=== PATIENT | female | born 1945 | race Caucasian/White ===

== ENCOUNTER 2018-02-27 12:01 | Inpatient (IN) ==
[2018-02-27] MEDS ORDERED: Morphine Inj 4 MG/ML Vial IV.PUSH ONE (12:29)
--- NOTE | 2018-02-27 12:33 | ED ---
HPI General Chief Complaint: Fall Stated Complaint: fall/ right elbow injury Time Seen by Provider: 02/27/18 12:16 Source: patient Mode of arrival: EMS Limitations: physical limitation History of Present Illness HPI Narrative: Patient is a 72-year-old female who presents to the emergency room with complaints of right-sided elbow pain. Patient reports that she was walking on the streets and was not paying attention, reports that she lost her balance and fell directly onto her right elbow. Patient denies any trauma to the head or neck, denies any loss of consciousness. Reports that she currently is not taking any anticoagulants. Patient is right hand dominant, her only complaint is her right elbow pain. Denies headache/dizzyness .Denies chest pain/ sob. Denies abdominal pain. NO other complaints. Related Data Home Medications Medication Instructions Recorded Confirmed amlodipine 5 mg PO DAILY 02/27/18 02/27/18 lovastatin 10 mg PO DAILY 02/27/18 02/27/18 sertraline 150 mg PO DAILY 02/27/18 02/27/18 Previous Rx's Medication Instructions Recorded tramadol 1 - 2 tab PO Q6H #28 tab 03/01/18 Allergies Allergy/AdvReac Type Severity Reaction Status Date / Time No Known Allergies Allergy Verified 02/28/18 06:57 Review of Systems ROS: all other systems reviewed are negative [facility] Medical History Medical History Anxiety (Acute) High cholesterol (Acute) Hypertension (Acute) Social History Social History Substance History: No History of Abuse Second Hand Smoke Exposure: No Smoking Status: Never smoker How Often Do You Have a Drink Containing Alcohol: Never Recent Travel in [facility] within the Last 8 Weeks: No Recent Out of Country Travel within the Last 8 Weeks: No Immunization History Tetanus Immunization: <5 Years Exam Narrative Exam Narrative: GENERAL: Well-nourished, well-developed patient. SKIN: Focused skin assessment warm/dry. HEAD: Normocephalic. EYES: No scleral icterus. No injection or drainage. NECK: Supple, trachea midline. No JVD or lymphadenopathy. CARDIOVASCULAR: Regular rate and rhythm without murmurs, gallops, or rubs. RESPIRATORY: Breath sounds equal bilaterally. No accessory muscle use. GASTROINTESTINAL: Abdomen soft, non-tender, nondistended. MUSCULOSKELETAL: No cyanosis, or edema. Patient with normal pulses to RUE - normal rom to all digits of fingers, normal rom to wrist- patient unable to ROM her right elbow due to pain - no open fx's - no skin tenting LUE: normal exam BACK: Nontender without obvious deformity. No CVA tenderness. Procedures Orthopedic Joint Reduction Joint #1: Time Out Performed: Yes Side: right Joint Reduction Location: elbow Analgesia: procedural sedation Technique Used: traction/counter-traction Post-Reduction Neuro Exam: intact Post Reduction X-Ray Obtained: Yes Post Reduction X-Ray Results: not reduced Splint Applied: Yes Patient Tolerated Procedure: well Procedural Sedation Indications: fracture/dislocation reduction ASA Class: ASA 2 Moderate Systemic Disease Time of Last PO Intake: 08:43 Preparation: cardiac exercise specialist applied, pulse oximeter, capnometry used, suction/ airway equipment at bedside and IV secured IV Propofol Dose (mgs): 70 Course Initial Documented Vital Signs Temperature 98.5 F 02/27/18 12:11 Pulse Rate 60 02/27/18 12:11 Respiratory Rate 16 02/27/18 12:11 Blood Pressure 167/70 H 02/27/18 12:11 Pulse Oximetry 99 02/27/18 12:11 Last Documented Vital Signs Temperature 97.9 F 03/01/18 08:00 Pulse Rate 62 03/01/18 08:00 Respiratory Rate 18 03/01/18 10:15 Blood Pressure 118/57 L 03/01/18 08:00 Pulse Oximetry 91 L 03/01/18 08:00 Medical Decision Making MDM Narrative Medical decision making narrative: Patient has received morphine on route to the emergency room and tolerated it. Patient with severe pain to the right elbow, will re-medicate with morphine. X-rays of the right humerus, elbow and forearm was ordered. Patient with no other obvious injuries Patient with acute complex persistent elbow dislocation - I had attempted to reduce elbow under conscious sedation - i was able to reduce elbow but due to it 's instability it will not stay in place - call made to orthopedic surgery Call made to transcription orthopedic surgeon - Dr. Hinds - multiple phone calls made to Dr. Hinds - he is in the OR as per his staff and is unable to return the phone call. he will call back after his surgery Case discussed with Dr. Kasper who requested a repeat attempt at reduction due to the nature of the dislocation, a medial elbow dislocation. Proper technique was employed with the elbow fully extended and palpable clunk was appreciable. Subsequent movement of the forearm bones and humerus appreciable followed by another significant palpable clunk. Plain films performed revealing an appropriate alignment. The patient received 200 mg of IV propofol in order to perform the procedure and was in pain. IV Dilaudid given. Distal neurovascular is intact along radial, median and ulnar distributions. Call placed to Dr. Hinds of [facility] at 528pm. d/w Dr Fox for [facility]. Medical Screen Exam Complete: Yes Emergency Medical Condition: Yes Differential Diagnosis Differential Diagnosis: elbow fx vs dislocation Lab Data Result diagrams: 02/28/18 04:47 02/28/18 04:47 Lab Results 02/27/18 02/27/18 02/27/18 Range/Units 16:00 16:00 16:00 WBC 10.4 (4.0-11.0) th/mm3 RBC 4.12 (4.00-5.30) mil/mm3 Hgb 13.1 (11.6-15.3) gm/dL Hct 38.9 (35.0-46.0) % MCV 94.5 (80.0-100.0) fL MCH 31.8 (27.0-34.0) pg MCHC 33.7 (32.0-36.0) % RDW 14.0 (11.6-17.2) % Plt Count 173 (150-450) th/mm3 MPV 10.0 (7.0-11.0) fL Neut % (Auto) 79.0 H (16.0-70.0) % Lymph % (Auto) 14.9 (9.0-44.0) % Winn % (Auto) 5.6 (0.0-8.0) % Eos % (Auto) 0.2 (0.0-4.0) % Baso % (Auto) 0.3 (0.0-2.0) % Neut # (Auto) 8.2 H (1.8-7.7) th/mm3 Lymph # (Auto) 1.6 (1.0-4.8) th/mm3 Winn # (Auto) 0.6 (0.0-0.9) th/mm3 Eos # (Auto) 0.0 (0.0-0.4) th/mm3 Baso # (Auto) 0.0 (0.0-0.2) th/mm3 WBC Differential . Differential Comment Auto diff final PT 10.1 (9.8-11.6) sec INR 1.0 Ratio APTT 23.3 L (23.4-31.7) sec Sodium 140 (136-145) meq/L Potassium 4.5 (3.5-5.1) meq/L Chloride 108 H (98-107) meq/L Carbon Dioxide 22.4 (21.0-32.0) meq/L Anion Gap 10 (5-15) meq/L BUN 16 (7-18) mg/dL Creatinine 0.87 (0.50-1.00) mg/dL Estimated GFR 64 L (>89) mL/min Random Glucose 106 (74-106) mg/dL Calcium 8.5 (8.5-10.1) mg/dL 02/28/18 02/28/18 Range/Units 04:47 04:47 WBC 5.6 (4.0-11.0) th/mm3 RBC 4.00 (4.00-5.30) mil/mm3 Hgb 12.4 (11.6-15.3) gm/dL Hct 37.8 (35.0-46.0) % MCV 94.4 (80.0-100.0) fL MCH 31.1 (27.0-34.0) pg MCHC 32.9 (32.0-36.0) % RDW 14.0 (11.6-17.2) % Plt Count 159 (150-450) th/mm3 MPV 10.2 (7.0-11.0) fL Neut % (Auto) 64.0 (16.0-70.0) % Lymph % (Auto) 25.8 (9.0-44.0) % Winn % (Auto) 9.1 H (0.0-8.0) % Eos % (Auto) 0.8 (0.0-4.0) % Baso % (Auto) 0.3 (0.0-2.0) % Neut # (Auto) 3.6 (1.8-7.7) th/mm3 Lymph # (Auto) 1.4 (1.0-4.8) th/mm3 Winn # (Auto) 0.5 (0.0-0.9) th/mm3 Eos # (Auto) 0.0 (0.0-0.4) th/mm3 Baso # (Auto) 0.0 (0.0-0.2) th/mm3 WBC Differential . Differential Comment Auto diff final PT (9.8-11.6) sec INR Ratio APTT (23.4-31.7) sec Sodium 141 (136-145) meq/L Potassium 4.0 (3.5-5.1) meq/L Chloride 109 H (98-107) meq/L Carbon Dioxide 22.4 (21.0-32.0) meq/L Anion Gap 10 (5-15) meq/L BUN 11 (7-18) mg/dL Creatinine 0.71 (0.50-1.00) mg/dL Estimated GFR 81 L (>89) mL/min Random Glucose 110 H (74-106) mg/dL Calcium 8.0 L (8.5-10.1) mg/dL Imaging Data Attestation: I personally reviewed and interpreted this imaging study as follows : Radiologist's impression: Elbow X-Ray 02/27/18 12:29 CONCLUSION: Elbow dislocation Humerus X-Ray 02/27/18 12:29 CONCLUSION: Mild degenerative changes, negative for fracture Elbow X-Ray 02/27/18 14:03 CONCLUSION: Persistent elbow dislocation. Elbow X-Ray 02/27/18 17:00 CONCLUSION: Persistent elbow dislocation Elbow X-Ray 02/28/18 00:00 CONCLUSION: Intraoperative spot images showing external fixation hardware. Discharge Plan Discharge Disposition Patient Disposition: 30 Still Patient Discharge Condition Condition: Stable Discharge Order Discharge Orders: Discharge Order (Routine); Ordered 03/01/18 Ordered By: [place] Discharge Details Anticipated Discharge Date: 03/01/18 Discharge Comment: Ok to discharge. Diagnosis: Dislocated elbow Physicians Team ED Provider: Debby Michaels Primary Care Provider: Suzy Rogers Attending Provider: Oscar Lazaro Other Providers: Anibal Hinds ; Stevie Barber ; [employer] Status ED Status: Left Department Discharge Information Discharge Date/Time: 02/27/18 20:20
--- NOTE | 2018-02-27 13:24 | XR ---
EXAM DATE: 02/27/2018 1:22 PM EST AGE/SEX: 72 years / Female INDICATIONS: Right elbow pain, fall off curb. CLINICAL DATA: This is the patient's initial encounter. Patient reports that signs and symptoms have been present for 1 day and indicates a pain score of 10/10. MEDICAL/SURGICAL HISTORY: None. None. COMPARISON: [facility], HUMERUS RIGHT 1V, 02/27/2018. . FINDINGS: Complete dislocation of the elbow with greater than one shaft with lateral translocation of the radiu s and ulna relative to the distal right humerus CONCLUSION: Elbow dislocation Electronically signed by: Jaren Satfford MD 02/27/2018 1:23 PM EST
--- NOTE | 2018-02-27 13:43 | XR ---
EXAM DATE: 02/27/2018 1:25 PM EST AGE/SEX: 72 years / Female INDICATIONS: Right arm pain, fall. CLINICAL DATA: This is the patient's initial encounter. Patient reports that signs and symptoms have been present for 1 day and indicates a pain score of 10/10. MEDICAL/SURGICAL HISTORY: None. None. COMPARISON: No prior exams available for comparison. FINDINGS: Bony structures are intact and in normal alignment. Osseous density is normal. Soft tissues are unre markable. No radiopaque foreign bodies seen. Degenerative changes are present at the shoulder. CONCLUSION: Mild degenerative changes, negative for fracture Electronically signed by: Freedom Finney MD 02/27/2018 1:42 PM EST
--- NOTE | 2018-02-27 14:34 | XR ---
EXAM DATE: 02/27/2018 2:27 PM EST AGE/SEX: 72 years / Female INDICATIONS: Post reduction, right elbow. CLINICAL DATA: This is the patient's subsequent encounter. Patient reports that signs and symptoms h ave been present for 1 day and indicates a pain score of 10/10. MEDICAL/SURGICAL HISTORY: None. None. COMPARISON: [facility] [place] ELBOW LIMITED RIGHT 2V, 02/27/2018. . FINDINGS: There is a dislocation at the elbow joint with the radius and ulna being displaced posteriorly. The p atient is in a cast/dressing. CONCLUSION: Persistent elbow dislocation. Electronically signed by: Jaren Edwards MD 02/27/2018 2:32 PM EST
[2018-02-27 16:30] LABS: Baso % (Auto) 0.3 % (0.0-2.0); Eos % (Auto) 0.2 % (0.0-4.0); Hematocrit 38.9 % (35.0-46.0); Hemoglobin 13.1 gm/dL (11.6-15.3); Lymph # (Auto) 1.6 th/mm3 (1.0-4.8); Lymph % (Auto) 14.9 % (9.0-44.0); Mean Corpuscular HGB Conc 33.7 % (32.0-36.0); Mean Corpuscular Hemoglobin 31.8 pg (27.0-34.0); Mean Corpuscular Volume 94.5 fL (80.0-100.0); Mono # (Auto) 0.6 th/mm3 (0.0-0.9); Mono % (Auto) 5.6 % (0.0-8.0); Neut # (Auto) 8.2 th/mm3 (1.8-7.7); Platelet Count 173 th/mm3 (150-450); Red Blood Count 4.12 mil/mm3 (4.00-5.30); White Blood Count 10.4 th/mm3 (4.0-11.0)
[2018-02-27 16:40] LABS: Activated Partial Thrombo Time 23.3 sec (23.4-31.7); Prothrombin Time 10.1 sec (9.8-11.6)
[2018-02-27] MEDS ORDERED: HYDROmorphone PF Inj 2 MG/ML Vial IV.PUSH ONE (16:40)
[2018-02-27 17:02] LABS: Calcium 8.5 mg/dL (8.5-10.1); Carbon Dioxide 22.4 meq/L (21.0-32.0); Potassium 4.5 meq/L (3.5-5.1)
--- NOTE | 2018-02-27 17:39 | XR ---
EXAM DATE: 02/27/2018 5:19 PM EST AGE/SEX: 72 years / Female INDICATIONS: Post reduction of the right elbow. CLINICAL DATA: This is the patient's subsequent encounter. Patient reports that signs and symptoms h ave been present for 1 day and indicates a pain score of 7/10. MEDICAL/SURGICAL HISTORY: None. None. COMPARISON: [facility] – [place], ELBOW LIMITED RIGHT 2V, 02/27/2018. . FINDINGS: There is persistent significant rotatory dislocation of the elbow most conspicuous on the lateral pro jection. A small ossific fragment projecting distal to the medial epicondyles on the frontal view is likely fracture fragment. CONCLUSION: Persistent elbow dislocation Electronically signed by: Jaren Stafford MD 02/27/2018 5:38 PM EST
[2018-02-27] MEDS ORDERED: Bisacodyl 10 MG Supp RECTAL PRN (19:41)
[2018-02-27] MEDS ORDERED: Acetaminophen 325 MG Tablet PO PRN (19:41)
--- NOTE | 2018-02-27 19:48 | P.HP ---
History of Present Illness Service: [facility] Primary Care Physician: Suzy Rogers MD History of Present Illness: 72-year-old female presents the emergency department for evaluation of a right arm trauma. The patient reports she slipped off a curb and fell onto her right arm that she had extended over her head. She dislocated the right elbow. Evaluation in the emergency department resulted in multiple unsuccessful attempts at reduction. The patient will be admitted for orthopedic surgery evaluation and pain control. Past medical history significant for hypertension/ hyperlipidemia and anxiety. Inpatient Certification: I certify that the inpatient services were ordered in accordance with Medicare regulations governing the order. This includes certification that hospital inpatient services are reasonable and necessary and in the case of services not specified as inpatient-only under 42 CFR 419.22(n), that they are appropriately provided as inpatient services in accordance to with the 2-midnight benchmark under 43 CFR 412.3(e) Estimated Total Length of Stay (Days): 2 Plans for Post Hospital Care: Not yet determined Review of Systems Denies fever or chills Denies blurry vision, otorrhea, rhinorrhea Denies sore throat and cough No chest pain, palpitations No shortness of breath or wheezing No abdominal pain Denies constipation/diarrhea/nausea/vomiting Denies muscle pain Denies focal weakness No rashes PMFSH - History History Provided By: Patient - Medical History Medical History: Medical History (Last Updated 02/27/18 @ 19:46 by Debby Fox MD) Anxiety High cholesterol History of hysterectomy Hypertension - Surgical History Surgical History: Surgical History (Last Updated 02/27/18 @ 19:46 by Debby Fox MD) History of cholecystectomy History of right knee surgery - Social History I have reviewed the patient's Social History: Yes - Tobacco History Second Hand Smoke Exposure: No Smoking Status: Never smoker - Alcohol History How Often Do You Have a Drink Containing Alcohol: Never - Substance Use History Substance History: No History of Abuse - Travel History Recent Travel in the [place] Within the Last 8 Weeks: No Recent Travel Out of the Country Within the Last 8 Weeks: No - Immunization History Tetanus Immunization: <5 Years Medications and Allergies Active Medications: Active Medications Acetaminophen (Tylenol) 650 mg PO Q4H PRN PRN Reason: Temp > 100.4 Al Hydroxide/Mg Hydroxide (Milk Of Magnesia Liq) 30 ml PO Q12H PRN PRN Reason: Mild Constipation Amlodipine Besylate (Norvasc) 5 mg PO DAILY [facility] Bisacodyl (Dulcolax Supp) 10 mg RECTAL DAILY PRN PRN Reason: SEVERE CONSITIPATION Hydromorphone HCl (Dilaudid Pf Inj) 1 mg IV.PUSH Q4H PRN PRN Reason: pain 6-10 Sodium Chloride (Ns Inj) 1,000 mls @ 100 mls/hr IV.CONT .Q10H [facility] Lactulose (Lactulose Liq) 30 ml PO DAILY PRN PRN Reason: SEVERE CONSITIPATION Non-Formulary Medication (Lovastatin [Lovastatin]) 10 mg PO DAILY [facility] Ondansetron HCl (Zofran Inj) 4 mg IV.PUSH Q6H PRN PRN Reason: NAUSEA OR VOMITING Senna/Docusate Sodium (Chary-Colace) 1 tab PO BID [facility] Sennosides (Senokot) 17.2 mg PO Q12H PRN PRN Reason: Moderate Constipation Sertraline HCl (Zoloft) 150 mg PO DAILY [facility] Sodium Chloride (Ns Flush) 2 ml IV.FLUSH PRN PRN PRN Reason: FLUSH AFTER USING IV ACCESS Allergies Allergy/AdvReac Type Severity Reaction Status Date / Time acetaminophen Allergy Unknown Vertigo Unverified 11/28/16 16:01 oxycodone Allergy Unknown Vertigo Unverified 11/28/16 16:01 Home Medications Medication Instructions Recorded Confirmed Type amlodipine 5 mg PO DAILY 02/27/18 02/27/18 History lovastatin 10 mg PO DAILY 02/27/18 02/27/18 History sertraline 150 mg PO DAILY 02/27/18 02/27/18 History Exam Vital signs: Vital Signs 02/27/18 12:11 02/27/18 13:46 02/27/18 14:30 Temperature 98.5 F Pulse Rate 60 56 L Respiratory Rate 16 9 L 13 Blood Pressure 167/70 H 138/64 Pulse Oximetry 99 98 98 02/27/18 15:00 02/27/18 16:00 02/27/18 19:38 Temperature Pulse Rate 56 L 62 59 L Respiratory Rate 20 20 16 Blood Pressure 137/67 140/63 149/91 H Pulse Oximetry 95 97 100 Intake & Output 02/27/18 02/27/18 02/28/18 06:59 18:59 06:59 Weight 78.471 kg Narrative: Gen.: No acute distress Head: Normocephalic. Atraumatic. EENT: Pupils equal round and reactive to light. Nose without drainage. Airway intact. Throat without injection. Cardiovascular: Regular rate and rhythm. No murmurs, rubs or gallops. Respiratory: Lungs clear to auscultation bilaterally. No wheezes or rhonchi. Abdomen: Soft, nontender, nondistended. No peritoneal signs. Musculoskeletal: Right arm splinted. Right hand neurovascularly intact. No edema. Skin: No obvious rashes or erythema. Neuro: Sensory and motor grossly intact. Cranial nerves II through XII grossly intact. Results - Labs CBC & Chem 7: 02/27/18 16:00 02/27/18 16:00 Labs: Laboratory Results - last 24 hr 02/27/18 02/27/18 02/27/18 16:00 16:00 16:00 WBC 10.4 RBC 4.12 Hgb 13.1 Hct 38.9 MCV 94.5 MCH 31.8 MCHC 33.7 RDW 14.0 Plt Count 173 MPV 10.0 Neut % (Auto) 79.0 H Lymph % (Auto) 14.9 Maverick % (Auto) 5.6 Eos % (Auto) 0.2 Baso % (Auto) 0.3 Neut # (Auto) 8.2 H Lymph # (Auto) 1.6 Maverick # (Auto) 0.6 Eos # (Auto) 0.0 Baso # (Auto) 0.0 WBC Differential . Differential Comment Auto diff final PT 10.1 INR 1.0 APTT 23.3 L Sodium 140 Potassium 4.5 Chloride 108 H Carbon Dioxide 22.4 Anion Gap 10 BUN 16 Creatinine 0.87 Estimated GFR 64 L Random Glucose 106 Calcium 8.5 - Imaging Impressions Elbow X-Ray 02/27/18 12:29 CONCLUSION: Elbow dislocation Humerus X-Ray 02/27/18 12:29 CONCLUSION: Mild degenerative changes, negative for fracture Elbow X-Ray 02/27/18 14:03 CONCLUSION: Persistent elbow dislocation. Elbow X-Ray 02/27/18 17:00 CONCLUSION: Persistent elbow dislocation Caprini VTE Risk Assessment Caprini VTE Risk Assessment: Moderate/High Risk (score >= 2) Caprini Risk Assessment Model: Point Value = 1 Point Value = 2 Point Value = 3 Point Value = 5 Age 41-60 Minor surgery BMI > 25 kg/m2 Swollen legs Varicose veins or History of unexplained or recurrent spontaneous Oral contraceptives or hormone replacement Sepsis (< 1 month) Serious lung disease, including pneumonia (< 1 month) Abnormal pulmonary function Acute myocardial infarction Congestive heart failure (< 1 month) History of inflammatory bowel disease Medical patient at bed rest Age 61-74 Arthroscopic surgery Major open surgery (> 45 min) Laparoscopic surgery (> 45 min) Malignancy Confined to bed (> 72 hours) Immobilizing plaster cast Central venous access Age >= 75 History of VTE Family history of VTE Factor V Leiden Prothrombin [id number] Lupus anticoagulant Anticardiolipin antibodies Elevated serum homocysteine Heparin-induced thrombocytopenia Other congenital or acquired thrombophilia Stroke (< 1 month) Elective arthroplasty Hip, pelvis, or leg fracture Acute spinal cord injury (< 1 month) Prophylaxis Regimen: Total Risk Factor Score Risk Level Prophylaxis Regimen 0-1 Low Early ambulation 2 Moderate Order ONE of the following: *Sequential Compression Device (SCD) *Heparin 5000 units SQ BID 3-4 Higher Order ONE of the following medications: *Heparin 5000 units SQ TID *Enoxaparin/Lovenox 40 mg SQ daily (WT < 150 kg, CrCl > 30 mL/min) *Enoxaparin/Lovenox 30 mg SQ daily (WT < 150 kg, CrCl > 10-29 mL/min) *Enoxaparin/Lovenox 30 mg SQ BID (WT < 150 kg, CrCl > 30 mL/min) AND/OR *Sequential Compression Device (SCD) 5 or more Highest Order ONE of the following medications: *Heparin 5000 units SQ TID (Preferred with Epidurals) *Enoxaparin/Lovenox 40 mg SQ daily (WT < 150 kg, CrCl > 30 mL/min) *Enoxaparin/Lovenox 30 mg SQ daily (WT < 150 kg, CrCl > 10-29 mL/min) *Enoxaparin/Lovenox 30 mg SQ BID (WT < 150 kg, CrCl > 30 mL/min) AND *Sequential Compression Device (SCD) Assessment and Plan - Plan Assessment/plan: 1. Right elbow dislocation Failed reduction in the emergency department Orthopedic surgery consulted, appreciate recommendations Dilaudid for pain 2. Hypertension/hyperlipidemia/anxiety Continue home medication FEN N.p.o. Electrolytes: Monitor and replete as needed NS at 100 cc/hour Holding pharmacologic anticoagulation for possible operative intervention
[2018-02-27] MEDS: HYDROmorphone PF Inj 2 MG/ML Vial IV.PUSH PRN (23:26)
[2018-02-27] MEDS: Senna/Docusate Sodium 8.6/50 MG Tablet PO SCH (23:27)
[2018-02-27] MEDS: Sod Chloride 0.9% Inj 1,000 ML IV.CONT SCH (23:32)
[2018-02-28] MEDS ORDERED: Chlorhexidine Gluconate 2% 1 Pack (2 Cloths) TOPICAL ONE (05:12)
[2018-02-28] MEDS ORDERED: Metoprolol Tartrate 25 MG Tablet PO ONE (05:12)
[2018-02-28 05:57] LABS: Baso % (Auto) 0.3 % (0.0-2.0); Eos % (Auto) 0.8 % (0.0-4.0); Hematocrit 37.8 % (35.0-46.0); Hemoglobin 12.4 gm/dL (11.6-15.3); Lymph # (Auto) 1.4 th/mm3 (1.0-4.8); Lymph % (Auto) 25.8 % (9.0-44.0); Mean Corpuscular HGB Conc 32.9 % (32.0-36.0); Mean Corpuscular Hemoglobin 31.1 pg (27.0-34.0); Mean Corpuscular Volume 94.4 fL (80.0-100.0); Mean Platelet Volume 10.2 fL (7.0-11.0); Mono # (Auto) 0.5 th/mm3 (0.0-0.9); Mono % (Auto) 9.1 % (0.0-8.0); Neut # (Auto) 3.6 th/mm3 (1.8-7.7); Platelet Count 159 th/mm3 (150-450); White Blood Count 5.6 th/mm3 (4.0-11.0)
[2018-02-28] MEDS ORDERED: Sodium Chlor 0.9% Inj 500 ML IV.SIG SCH (06:00)
[2018-02-28 06:07] LABS: Carbon Dioxide 22.4 meq/L (21.0-32.0)
[2018-02-28] MEDS: Sod Chloride 0.9% Inj 1,000 ML IV.CONT SCH ×2 (07:28→15:45)
[2018-02-28] MEDS: Senna/Docusate Sodium 8.6/50 MG Tablet PO SCH ×2 (08:07→22:19)
[2018-02-28] MEDS: Sertraline 100 MG Tablet PO SCH (08:07)
[2018-02-28] MEDS: amLODIPine 5 MG Tablet PO SCH (08:07)
[2018-02-28] MEDS ORDERED: Famotidine PF Inj 20 MG/2 ML Vial ONE (08:14)
[2018-02-28] MEDS: HYDROmorphone PF Inj 2 MG/ML Vial IV.PUSH PRN (08:19)
[2018-02-28] MEDS ORDERED: fentaNYL Citrate Inj 100 MCG/2 ML Ampul ONE (09:18)
[2018-02-28] MEDS ORDERED: Succinylcholine Inj 100 MG/5 ML Syringe IV.PUSH ONE (10:06)
[2018-02-28] MEDS ORDERED: Lidocaine PF 1% Inj 5 ML Syringe OTHER ONE (10:06)
[2018-02-28] MEDS ORDERED: Glycopyrrolate Inj 1 MG/5 ML Syringe IV.PUSH ONE (10:06)
[2018-02-28] MEDS ORDERED: Neostigmine Inj 5 MG/5 ML Syringe IV.PUSH ONE (10:06)
[2018-02-28] MEDS ORDERED: Sodium Chloride 0.9% 2 ML Flush PRN IV.FLUSH (10:17)
[2018-02-28] MEDS ORDERED: ceFAZolin 1 GM Premix Inj 2 GM/100 ML PIGGYBACK IV.SIG ONE (10:32)
[2018-02-28] MEDS ORDERED: Post-op Orders (for Pharmacy) OTHER STA (11:56)
[2018-02-28] MEDS ORDERED: Morphine Inj 4 MG/ML Vial IV.PUSH PRN (11:56)
--- NOTE | 2018-02-28 11:56 | P.OP ---
Date of procedure: 02/28/18 Procedure: Open reduction right elbow dislocation, external fixation right elbow, primary repair of right ulnar collateral ligament, primary repair of lateral ulnar collateral ligament Anesthesia: GETA Surgeon: Stevie Barber MD Saddle Maker: TAHIR Garvey PA-C The surgical procedure was assisted by my physician virtual office assistant. My P.A. presence was necessary throughout this case for the manipulation and positioning of the surgical extremity. My P.A. was assisting me throughout the duration of this procedure. The skill set of a physician virtual office assistant was medically necessary to complete this procedure. During the surgical case the surgical garment fitter was working at the back table and the physician virtual office assistant was directly assisting me. Operation and Findings: Leona had a fall resulting in unstable right elbow dislocation. Informed consent was obtained preoperatively. Operative site was marked. The risk and benefits of surgery were discussed in depth with patient. All questions were answered. She was taken to the operating room. SHe was given IV sedation and general anesthesia. She received IV antibiotics. She was placed in lateral decubitus position. Right arm was prepped with alcohol followed Hibiclens and draped in usual sterile fashion. Timeout procedure was performed. Procedure began attempted closed reduction of the right elbow. Traction was applied. The elbow was reduced. The elbow was extremely unstable. Both the medial and lateral collateral ligament complexes appear to be complete completely disrupted. The elbow would not stay in a reduced position. Decision was made to proceed with open repair of the elbow. A 5 inch incision made over the posterior aspect of the elbow. Subcutaneous tissue was dissected with Bovie. The lateral border of the triceps was elevated to allow for visualization of the lateral joint. Medially the ulnar nerve was identified and protected. The joint was visualized. The lateral ulnar collateral ligament complex and the ulnar collateral ligament complex were completely avulsed. The elbow was gently manipulated. The elbow was reduced. The elbow was placed through range of motion appeared to be very unstable. Both the medial and lateral ligaments were completely disrupted. At this point attention was turned to external fixation. A 3 inch incision was made over the distal humeral shaft. The distal humerus was exposed. The radial nerve was visualized and protected. Pin sites were predrilled. 2 pins were placed in the distal humerus. 2 additional pins were placed into the proximal ulna. An external fixator construct was created. Fluoroscopy confirmed appropriate pin placement. The elbow was now manually reduced. External fixator construct was tightened to hold reduction. Fluoroscopy confirmed appropriate reduction of the elbow joint. At this point attention was turned towards the lateral ulnar collateral ligament complex. A 3.2 mm drill hole was made at the origin of the ligament complex. The drill hole was tapped. A 5.5 mm Arthrex bioabsorbable anchor was now placed. Using the attached #2 suture, the lateral ulnar collateral ligament complex was repaired back to the origin of the distal humerus. The ligament repair was stable. Next, attention was turned towards the ulnar collateral ligament complex. The ulnar nerve is protected. A 3.2 mm drill hole was made at the origin of the ligament complex. Using the Arthrex anchor system, the drill hole was tapped. A 5.5 mm Arthrex bioabsorbable anchor was now placed. Using the attached #2 suture, the ulnar collateral ligament complex was repaired back to the origin of the distal humerus. The ligament repair was stable. The incisions were not closed with 3-0 PDS, 3-0 nylon, and james. Sterile dressings were applied. Patient's hand was warm and well-perfused. Needle sponge counts were correct.
--- NOTE | 2018-02-28 12:03 | P.CONOP ---
[facility] Orthopedics Consult Note - [facility] Consult date: 02/28/18 Chief complaint: Right Elbow Dislocation Not Reducible Narrative: Jerson is a 72-year-old female. She had a mechanical fall. She slipped off a curb. She landed on her right arm. She had immediate right elbow pain and deformity. She presented to the emergency room. X-rays and evaluation revealed unstable right elbow dislocation. Emergency room physician attempted closed reduction. Postreduction x-rays revealed persistent dislocation. Patient is currently awake and alert in the orthopedic floor. Her only complaint is her right arm. Pain is severe and intense with movement. Pain is improved with rest. She denies dizziness, syncope, or loss of consciousness. Review of Systems Patient denies fevers, chills, weight loss, headache, visual changes, hearing loss, chest pain, palpitations, shortness of breath, nausea, vomiting, no urinary changes, diarrhea, bowel changes, neck pain, back pain, skin rashes, weakness of extremities, easy bleeding, enlarged lymph nodes, numbness of extremities, anxiety, or depression. She complains of right elbow pain Patient's social history, past medical history, and family history were reviewed on chart and with patient. [facility] - History History Provided By: Patient - Medical History Medical History: Medical History (Last Reviewed 02/28/18 @ 12:01 by Stevie Barber MD) Anxiety High cholesterol History of hysterectomy Hypertension - Surgical History Surgical History: Surgical History (Last Reviewed 02/28/18 @ 12:01 by Stevie Barber MD) History of cholecystectomy History of right knee surgery - Family History Family History: Family History (Last Updated 02/28/18 @ 12:01 by Stevie Barber MD) Other Family history non-contributory - Social History I have reviewed the patient's Social History: Yes - Tobacco History Second Hand Smoke Exposure: No Smoking Status: Never smoker - Alcohol History How Often Do You Have a Drink Containing Alcohol: Never - Substance Use History Substance History: No History of Abuse - Travel History Recent Travel in the [place] Within the Last 8 Weeks: No Recent Travel Out of the Country Within the Last 8 Weeks: No - Immunization History Tetanus Immunization: <5 Years Hx Influenza Vaccine This Season: Yes Medications and Allergies Active Medications: Active Medications Acetaminophen (Tylenol) 650 mg PO Q4H PRN PRN Reason: Temp > 100.4 Al Hydroxide/Mg Hydroxide (Milk Of Tano Abreuq) 30 ml PO Q12H PRN PRN Reason: Mild Constipation Amlodipine Besylate (Norvasc) 5 mg PO DAILY [facility] Last Admin: 02/28/18 08:07 Dose: 5 mg Bisacodyl (Dulcolax Supp) 10 mg RECTAL DAILY PRN PRN Reason: SEVERE CONSITIPATION Hydromorphone HCl (Dilaudid Pf Inj) 1 mg IV.PUSH Q4H PRN PRN Reason: pain 6-10 Last Admin: 02/28/18 08:19 Dose: 1 mg Sodium Chloride (Ns Inj) 1,000 mls @ 100 mls/hr IV.CONT .Q10H [facility] Last Infusion: 02/28/18 08:30 Dose: 0 mls/hr Lactated Ringer's (Lr 1000 Ml Inj) 1,000 mls @ 30 mls/hr IV.SIG .Q24H [facility] Stop: 03/01/18 05:14 Last Admin: 02/28/18 06:47 Dose: 30 mls/hr Sodium Chloride (Ns Inj) 500 mls @ 30 mls/hr IV.SIG .Q10H [facility] Lactulose (Lactulose Liq) 30 ml PO DAILY PRN PRN Reason: SEVERE CONSITIPATION Ondansetron HCl (Zofran Inj) 4 mg IV.PUSH Q6H PRN PRN Reason: NAUSEA OR VOMITING Pravastatin Sodium (Pravachol) 10 mg PO DAILY [facility] Last Admin: 02/28/18 08:07 Dose: 10 mg Senna/Docusate Sodium (Chary-Colace) 1 tab PO BID [facility] Last Admin: 02/28/18 08:07 Dose: 1 tab Sennosides (Senokot) 17.2 mg PO Q12H PRN PRN Reason: Moderate Constipation Sertraline HCl (Zoloft) 150 mg PO DAILY [facility] Last Admin: 02/28/18 08:07 Dose: 150 mg Sodium Chloride (Ns Flush) 2 ml IV.FLUSH BID [place] Sodium Chloride (Ns Flush) 2 ml IV.FLUSH PRN PRN PRN Reason: FLUSH AFTER USING IV ACCESS Allergies Allergy/AdvReac Type Severity Reaction Status Date / Time No Known Allergies Allergy Verified 02/28/18 06:57 Home Medications Medication Instructions Recorded Confirmed Type amlodipine 5 mg PO DAILY 02/27/18 02/27/18 History lovastatin 10 mg PO DAILY 02/27/18 02/27/18 History sertraline 150 mg PO DAILY 02/27/18 02/27/18 History Exam Vital signs: Vital Signs 02/27/18 12:11 02/27/18 13:46 02/27/18 14:30 Temperature 98.5 F Pulse Rate 60 56 L Respiratory Rate 16 9 L 13 Blood Pressure 167/70 H 138/64 Pulse Oximetry 99 98 98 02/27/18 15:00 02/27/18 16:00 02/27/18 19:38 Temperature Pulse Rate 56 L 62 59 L Respiratory Rate 20 20 16 Blood Pressure 137/67 140/63 149/91 H Pulse Oximetry 95 97 100 02/27/18 20:00 02/27/18 23:56 02/28/18 00:00 Temperature 98.4 F 98.3 F Pulse Rate 63 62 Respiratory Rate 16 18 16 Blood Pressure 149/68 H 127/60 Pulse Oximetry 94 L 93 L 02/28/18 04:00 02/28/18 08:00 Temperature 97.9 F 98.5 F Pulse Rate 62 65 Respiratory Rate 16 14 Blood Pressure 155/74 H 142/68 H Pulse Oximetry 95 96 Intake & Output 02/27/18 02/28/18 02/28/18 18:59 06:59 18:59 Intake Total 50 / 50 Balance 50 / 50 Weight 78.471 kg 87.2 kg Intake: IV 50 / 50 Ancef 1 GM Premix Inj 2 gm In 50 / 50 100 ml @ 0 mls/hr IV.SIG .STK- [facility] Rx#:[id number] Other: # Voids 5 Date of Last Bowel Movement 02/28/18 Weight On Admission 87.2 kg Narrative: Patient is a pleasant 72-year-old female. General: Awake and alert. No acute distress. Appears well-developed well- nourished Head: Normocephalic, atraumatic pupils are equal Neck: Soft, nontender, trachea midline Abdomen: Soft, nondistended Examination of right arm reveals no tenderness around her shoulder or wrist. She has severe pain with any elbow motion. She has bruising and swelling around her elbow. Skin is intact. Radial pulse is palpable. Normal capillary refill in fingers. Sensation is intact in radial, ulnar, and median nerve distributions. She is able to flex and extend her wrist and fingers. No lymphadenopathy noted. Examination of left arm reveals no pain or deformity with shoulder, elbow, or wrist motion. Skin is intact. Radial pulse is palpable. Normal capillary refill in fingers. Sensation is intact in radial, ulnar, and median nerve distributions. Soft [employer]als Hand Engraver strength is +5. No lymphadenopathy noted. Examination of left lower extremity reveals no pain or deformity with hip, knee , or ankle motion. Skin is intact. Sensation is intact in left foot. Dorsalis pedis pulse is palpable. Normal capillary refill and feet. Thigh and calf compartments are soft. No lymphadenopathy noted. +5 strength of ankle dorsiflexion and plantarflexion. Examination of right lower extremity reveals no pain or deformity with hip, knee , or ankle motion. Skin is intact. Sensation is intact in right foot. Dorsalis pedis pulse is palpable. Normal capillary refill and feet. Thigh and calf compartments are soft. No lymphadenopathy noted. +5 strength of ankle dorsiflexion and plantarflexion. Results - Labs Result Diagrams: 02/28/18 04:47 02/28/18 04:47 Labs: Laboratory Results - last 24 hr 02/27/18 02/27/18 02/27/18 16:00 16:00 16:00 WBC 10.4 RBC 4.12 Hgb 13.1 Hct 38.9 MCV 94.5 MCH 31.8 MCHC 33.7 RDW 14.0 Plt Count 173 MPV 10.0 Neut % (Auto) 79.0 H Lymph % (Auto) 14.9 [place] % (Auto) 5.6 Eos % (Auto) 0.2 Baso % (Auto) 0.3 Neut # (Auto) 8.2 H Lymph # (Auto) 1.6 [place] # (Auto) 0.6 Eos # (Auto) 0.0 Baso # (Auto) 0.0 WBC Differential . Differential Comment Auto diff final PT 10.1 INR 1.0 APTT 23.3 L Sodium 140 Potassium 4.5 Chloride 108 H Carbon Dioxide 22.4 Anion Gap 10 BUN 16 Creatinine 0.87 Estimated GFR 64 L Random Glucose 106 Calcium 8.5 02/28/18 02/28/18 04:47 04:47 WBC 5.6 RBC 4.00 Hgb 12.4 Hct 37.8 MCV 94.4 MCH 31.1 MCHC 32.9 RDW 14.0 Plt Count 159 MPV 10.2 Neut % (Auto) 64.0 Lymph % (Auto) 25.8 [place] % (Auto) 9.1 H Eos % (Auto) 0.8 Baso % (Auto) 0.3 Neut # (Auto) 3.6 Lymph # (Auto) 1.4 [place] # (Auto) 0.5 Eos # (Auto) 0.0 Baso # (Auto) 0.0 WBC Differential . Differential Comment Auto diff final PT INR APTT Sodium 141 Potassium 4.0 Chloride 109 H Carbon Dioxide 22.4 Anion Gap 10 BUN 11 Creatinine 0.71 Estimated GFR 81 L Random Glucose 110 H Calcium 8.0 L - Diagnostic results Imaging: Impressions Elbow X-Ray 02/27/18 12:29 CONCLUSION: Elbow dislocation Humerus X-Ray 02/27/18 12:29 CONCLUSION: Mild degenerative changes, negative for fracture Elbow X-Ray 02/27/18 14:03 CONCLUSION: Persistent elbow dislocation. Elbow X-Ray 02/27/18 17:00 CONCLUSION: Persistent elbow dislocation Elbow x-ray: report reviewed, image reviewed Assessment and Plan - Assessment and Plan Leona has an unstable right elbow dislocation. Closed reduction attempts were unsuccessful in the emergency department. At this point patient will need surgery for possible closed reduction with possible external fixation and possible ligamentous repair. The risk and benefits of surgery were discussed in depth with patient. All questions were answered. The risk and benefits of surgery were discussed in depth with patient. The risk of surgery include bleeding, infection, injuries to arteries, nerves, or blood vessels, weakness or numbness of hand, infection, wound complications, nonunion, malunion, painful hardware, pin site infection, and need for further surgery. I also discussed medical complications including blood clots, pneumonia, stroke, heart attack, and . Informed consent was obtained and all questions were answered. N.p.o.--plan on surgery this morning Calcium and vitamin D supplementation Physical therapy consult--nonweightbearing right arm Follow-up with Dr. Barber in 2 weeks DUC Nice A mid-level provider in my office (nurse practitioner or physician assistant women's soccer coach) may see this patient on follow-up visits and continue to implement the objectives of this plan including: Starting or adjusting medications, injections , cast application, orthotics, brace application, physical therapy, radiological studies (including x-ray, MRI, CT, ultrasound, bone scan), vascular studies, neurologic studies, specialist consultation, and proceeding with surgical management, as appropriate.
[2018-02-28] MEDS ORDERED: *morphine SULFATE 10 MG/ML PERIprocedure ONLY ONE ×2 (12:34→13:12)
--- NOTE | 2018-02-28 15:39 | XR ---
EXAM DATE: 02/28/2018 3:13 PM EST AGE/SEX: 72 years / Female INDICATIONS: External fixation right elbow. CLINICAL DATA: This is the patient's initial encounter. Patient reports that signs and symptoms have been present for 1 day and indicates a pain score of Nonresponsive. MEDICAL/SURGICAL HISTORY: Non-responsive. Non-responsive. COMPARISON: [facility] [place] 2[place], 02/27/2018. . FINDINGS: 2 intraoperative digital spot images of the elbow showing external fixation hardware. Bone alignment within normal limits. CONCLUSION: Intraoperative spot images showing external fixation hardware. Electronically signed by: Jaems Estes MD 02/28/2018 3:38 PM EST
[2018-02-28] MEDS: Calcium/Vitamin D 250/125 MG Tablet PO SCH (17:31)
[2018-02-28] MEDS: ceFAZolin 2 GM Premix Inj 2 GM/50 ML PIGGYBACK IV.SIG SCH (17:31)
--- NOTE | 2018-02-28 17:48 | P.PN ---
Subjective Interval history: Follow up for right elbow dislocation, HTN/HLD. The patient is seen s/p open reduction right elbow dislocation and external fixation right elbow by Dr. Barber today. She reports pain is currently well controlled. Denies any fevers/ chills, headache, lightheadedness, chest pain, cough, shortness of breath, abdominal or urinary complaints. She has not yet attempted oral intake. She had a BM today. Vital signs reviewed and stable. Physical Exam Vital signs: Vital Signs 02/27/18 19:38 02/27/18 20:00 02/27/18 23:56 Temperature 98.4 F Pulse Rate 59 L 63 Respiratory Rate 16 16 18 Blood Pressure 149/91 H 149/68 H Pulse Oximetry 100 94 L 02/28/18 00:00 02/28/18 04:00 02/28/18 08:00 Temperature 98.3 F 97.9 F 98.5 F Pulse Rate 62 62 65 Respiratory Rate 16 16 14 Blood Pressure 127/60 155/74 H 142/68 H Pulse Oximetry 93 L 95 96 02/28/18 12:13 02/28/18 12:15 02/28/18 12:30 Temperature 97.9 F Pulse Rate 66 60 54 L Respiratory Rate 20 22 16 Blood Pressure 128/60 120/57 L 115/55 L Pulse Oximetry 98 98 96 02/28/18 12:45 02/28/18 13:00 02/28/18 13:15 Temperature Pulse Rate 56 L 51 L 51 L Respiratory Rate 16 15 14 Blood Pressure 92/53 L 101/54 L 122/56 L Pulse Oximetry 95 95 97 02/28/18 13:30 02/28/18 13:45 02/28/18 14:00 Temperature 98.0 F Pulse Rate 52 L 54 L 57 L Respiratory Rate 14 13 13 Blood Pressure 104/51 L 113/55 L 118/56 L Pulse Oximetry 94 L 95 95 02/28/18 14:30 Temperature 98.1 F Pulse Rate 60 Respiratory Rate 12 Blood Pressure 128/59 L Pulse Oximetry 95 Intake & Output 02/27/18 02/28/18 02/28/18 18:59 06:59 18:59 Intake Total 50 / 50 Balance 50 / 50 Weight 78.471 kg 87.2 kg Intake: IV 50 / 50 Ancef 1 GM Premix Inj 2 gm In 50 / 50 100 ml @ 0 mls/hr IV.SIG .STK- [facility] Rx#:[id number] Other: # Voids 5 Date of Last Bowel Movement 02/28/18 Weight On Admission 87.2 kg Narrative: GENERAL: Well-nourished, well-developed pleasant female patient in [facility]. SKIN: Warm and dry. No rash. HEENT: Normocephalic. Atraumatic. Pupils equal and round. Mucous membranes pink and moist. CARDIOVASCULAR: Regular rate and rhythm. No murmur appreciated. RESPIRATORY: No accessory muscle use. Clear to auscultation. Breath sounds equal bilaterally. GASTROINTESTINAL: Abdomen soft, non-tender, nondistended. Normoactive bowel sounds x4. MUSCULOSKELETAL: No obvious deformities. Extremities without clubbing, cyanosis , or edema. RUE in surgical dressing with external fixator in place, distal sensation intact with brisk capillary refill. NEUROLOGICAL: Awake and alert. No obvious cranial nerve deficits. Motor grossly within normal limits. Moving all extremities spontaneously. Normal speech. PSYCHIATRIC: Appropriate mood and affect; insight and judgment normal. Results - Labs CBC & Chem 7: 02/28/18 04:47 02/28/18 04:47 Laboratory Results - last 24 hr 02/28/18 02/28/18 04:47 04:47 WBC 5.6 RBC 4.00 Hgb 12.4 Hct 37.8 MCV 94.4 MCH 31.1 MCHC 32.9 RDW 14.0 Plt Count 159 MPV 10.2 Neut % (Auto) 64.0 Lymph % (Auto) 25.8 [place] % (Auto) 9.1 H Eos % (Auto) 0.8 Baso % (Auto) 0.3 Neut # (Auto) 3.6 Lymph # (Auto) 1.4 [place] # (Auto) 0.5 Eos # (Auto) 0.0 Baso # (Auto) 0.0 WBC Differential . Differential Comment Auto diff final Sodium 141 Potassium 4.0 Chloride 109 H Carbon Dioxide 22.4 Anion Gap 10 BUN 11 Creatinine 0.71 Estimated GFR 81 L Random Glucose 110 H Calcium 8.0 L - Imaging Impressions Elbow X-Ray 02/27/18 17:00 CONCLUSION: Persistent elbow dislocation Elbow X-Ray 02/28/18 00:00 CONCLUSION: Intraoperative spot images showing external fixation hardware. - Procedures 02/28/18 - Open reduction right elbow dislocation, external fixation right elbow , primary repair of right ulnar collateral ligament, primary repair of lateral ulnar collateral ligament by Dr. Barber Assessment and Plan - Plan 72-year-old female with history of hypertension, hyperlipidemia, anxiety, presents after a mechanical fall with right arm deformity and pain. Right elbow dislocation: Acute, status post fall -X-ray upon arrival showed right elbow dislocation -Multiple attempts to reduce dislocation in the ER unsuccessful -Orthopedics consulted -02/28 s/p Open reduction right elbow dislocation, external fixation right elbow, primary repair of right ulnar collateral ligament, primary repair of lateral ulnar collateral ligament -Continue pain control with [place] prn and IV morphine prn -PT consulted, [facility] ALFE Hypertension/Hyperlipidemia: chronic -continue patient's amlodipine 5mg daily and statin -monitor BP, adjust antihypertensives as needed Anxiety/Depression: chronic -continue patient's sertraline DVT Prophylaxis: teds/SCDs; hold chemical prophylaxis until ok with ortho
--- NOTE | 2018-02-28 17:58 | ECG ---
Date Performed: 02/28/2018 Time Performed: 05:27:50 PTAGE: 72 years EKG: Sinus bradycardia. Lead(s) unsuitable for analysis: V2 Normal ECG except for rate PREVIOUS TRACING 10/05/2012 Since the previous tracing, no significant change noted DOCTOR: Lester Salamanca Interpretating Date/Time 02/28/2018 17:56:47
[2018-02-28 18:44] VITALS: RESP 18
[2018-02-28] MEDS: Sodium Chloride 0.9% 2 ML Flush BID IV.FLUSH SCH (22:32)
[2018-03-01] MEDS: Sod Chloride 0.9% Inj 1,000 ML IV.CONT SCH ×2 (01:45→11:45)
[2018-03-01] MEDS: ceFAZolin 2 GM Premix Inj 2 GM/50 ML PIGGYBACK IV.SIG SCH ×2 (03:02→09:45)
[2018-03-01] MEDS: Calcium/Vitamin D 250/125 MG Tablet PO SCH ×3 (05:14→13:02)
--- NOTE | 2018-03-01 06:29 | P.PNOP ---
Subjective Interval history: Pain is controlled and doing well status post surgery yesterday for external fixation and ligament repair of dislocated right elbow Physical Exam Vital signs: Vital Signs 02/28/18 08:00 02/28/18 12:13 02/28/18 12:15 Temperature 98.5 F 97.9 F Pulse Rate 65 66 60 Respiratory Rate 14 20 22 Blood Pressure 142/68 H 128/60 120/57 L Pulse Oximetry 96 98 98 02/28/18 12:30 02/28/18 12:45 02/28/18 13:00 Temperature Pulse Rate 54 L 56 L 51 L Respiratory Rate 16 16 15 Blood Pressure 115/55 L 92/53 L 101/54 L Pulse Oximetry 96 95 95 02/28/18 13:15 02/28/18 13:30 02/28/18 13:45 Temperature Pulse Rate 51 L 52 L 54 L Respiratory Rate 14 14 13 Blood Pressure 122/56 L 104/51 L 113/55 L Pulse Oximetry 97 94 L 95 02/28/18 14:00 02/28/18 14:30 02/28/18 18:01 Temperature 98.0 F 98.1 F Pulse Rate 57 L 60 Respiratory Rate 13 12 18 Blood Pressure 118/56 L 128/59 L Pulse Oximetry 95 95 02/28/18 20:00 03/01/18 00:30 Temperature 97.8 F 98.4 F Pulse Rate 58 L 62 Respiratory Rate 18 18 Blood Pressure 108/54 L 118/58 L Pulse Oximetry 95 96 Intake & Output 02/28/18 02/28/18 03/01/18 06:59 18:59 06:59 Intake Total 100 / 100 50 / 50 Balance 100 / 100 50 / 50 Weight 87.2 kg Intake: IV 100 / 100 50 / 50 Ancef 1 GM Premix Inj 2 gm In 50 / 50 100 ml @ 0 mls/hr IV.SIG .STK- [facility] Rx#:[id number] Ancef 2 GM Premix Inj 2 gm In 50 / 50 50 / 50 50 ml @ 200 mls/hr IV.SIG Q8H [facility] Rx#:[id number] Other: # Voids 5 Date of Last Bowel Movement 02/28/18 02/28/18 Weight On Admission 87.2 kg Narrative: Right upper extremity: Clean dry dressings intact. External fixator in place. Intact sensation in all fingers. Full extension and flexion of fingers. Results - Labs CBC & Chem 7: 02/28/18 04:47 02/28/18 04:47 - Imaging Impressions Elbow X-Ray 02/28/18 00:00 CONCLUSION: Intraoperative spot images showing external fixation hardware. - Procedures 02/28/18 - Open reduction right elbow dislocation, external fixation right elbow , primary repair of right ulnar collateral ligament, primary repair of lateral ulnar collateral ligament by Dr. Barber Assessment and Plan - Assessment and Plan Reduction of right elbow dislocation with external fixation and ligament repair of elbow POD 1 Nonweightbearing right upper extremity Sling at all times Keep dressings clean and dry. Discharge plan -orthopedically cleared for discharge No dressing changes Follow-up with Dr. Barber or JUSTINA in 2 weeks
[2018-03-01] MEDS: Sodium Chloride 0.9% 2 ML Flush BID IV.FLUSH SCH (09:00)
[2018-03-01] MEDS: Sertraline 100 MG Tablet PO SCH (09:44)
[2018-03-01] MEDS: Senna/Docusate Sodium 8.6/50 MG Tablet PO SCH (09:45)
[2018-03-01] MEDS: amLODIPine 5 MG Tablet PO SCH (09:45)
[2018-03-01 10:02] VITALS: BP 118/57; PULSE 62; TEMP 97.9; O2SAT 91
--- NOTE | 2018-03-01 10:13 | P.DS ---
Date of admission: 02/27/18 19:09 Primary care physician: Suzy Rogers MD Attending physician on discharge: Oscar Lazaro Anticipated date of discharge: 03/01/18 Brief History from admission: 72-year-old female presents the emergency department for evaluation of a right arm trauma. The patient reports she slipped off a curb and fell onto her right arm that she had extended over her head. She dislocated the right elbow. Evaluation in the emergency department resulted in multiple unsuccessful attempts at reduction. The patient will be admitted for orthopedic surgery evaluation and pain control. Past medical history significant for hypertension/ hyperlipidemia and anxiety. Patient update on day of discharge: Follow up for right elbow dislocation s/p open reduction right elbow dislocation and external fixation right elbow by Dr. Barber yesterday. The patient is ready to go home. She reports continued pain at the right elbow although it is tolerable. She states the norco doesn't work for her and percocets make her nauseated, but she is willing to try tramadol upon discharge. She reports a BM yesterday. She declines any physical therapy at home , and also declines occupational therapy evaluation. She has no other medical complaints at this time. DS: Diagnosis - Discharge Diagnosis (1) Dislocated elbow Status: Acute DS: Medications - Discharge Medications Prescriptions: tramadol 1 - 2 tab PO Q6H #28 tab DS: Summary Hospital Course: 72-year-old female with history of hypertension, hyperlipidemia, anxiety, presents after a mechanical fall with right arm deformity and pain. Right elbow dislocation: Acute, status post fall on a curb. X-ray upon arrival showed right elbow dislocation. Multiple attempts to reduce dislocation in the ER unsuccessful. Orthopedics consulted, seen by Dr. Barber. 02/28 s/p Open reduction right elbow dislocation, external fixation right elbow, primary repair of right ulnar collateral ligament, primary repair of lateral ulnar collateral ligament. Continued pain control with [place] prn and IV morphine prn, although patient prefers to try tramadol at discharge. PT consulted, [facility] MARLO. Patient declined any PT or OT at discharge. Cleared by ortho for d/c. Hypertension/Hyperlipidemia: chronic. Continued patient's amlodipine 5mg daily and statin. Stable. Anxiety/Depression: chronic. Continued patient's sertraline - Time Spent with Patient Total time spent providing and/or coordinating discharge services: Less than 30 minutes - Quality: VTE Deep Vein Thrombosis/Pulmonary Embolism Present on Admission: No Exam Vital signs: Vital Signs 02/28/18 12:13 02/28/18 12:15 02/28/18 12:30 Temperature 97.9 F Pulse Rate 66 60 54 L Respiratory Rate 20 22 16 Blood Pressure 128/60 120/57 L 115/55 L Pulse Oximetry 98 98 96 02/28/18 12:45 02/28/18 13:00 02/28/18 13:15 Temperature Pulse Rate 56 L 51 L 51 L Respiratory Rate 16 15 14 Blood Pressure 92/53 L 101/54 L 122/56 L Pulse Oximetry 95 95 97 02/28/18 13:30 02/28/18 13:45 02/28/18 14:00 Temperature 98.0 F Pulse Rate 52 L 54 L 57 L Respiratory Rate 14 13 13 Blood Pressure 104/51 L 113/55 L 118/56 L Pulse Oximetry 94 L 95 95 02/28/18 14:30 02/28/18 18:01 02/28/18 20:00 Temperature 98.1 F 97.8 F Pulse Rate 60 58 L Respiratory Rate 12 18 18 Blood Pressure 128/59 L 108/54 L Pulse Oximetry 95 95 03/01/18 00:30 03/01/18 05:20 03/01/18 08:00 Temperature 98.4 F 98.4 F 97.9 F Pulse Rate 62 58 L 62 Respiratory Rate 18 18 18 Blood Pressure 118/58 L 131/65 118/57 L Pulse Oximetry 96 96 91 L Intake & Output 02/28/18 03/01/18 03/01/18 18:59 06:59 18:59 Intake Total 100 / 100 170 / 170 Balance 100 / 100 170 / 170 Weight 86.8 kg Intake: IV 100 / 100 50 / 50 Ancef 1 GM Premix Inj 2 gm In 50 / 50 100 ml @ 0 mls/hr IV.SIG .STK- [facility] Rx#:[id number] Ancef 2 GM Premix Inj 2 gm In 50 / 50 50 / 50 50 ml @ 200 mls/hr IV.SIG Q8H [facility] Rx#:[id number] Oral 120 / 120 Other: # Voids 2 Date of Last Bowel Movement 02/28/18 02/28/18 Narrative: GENERAL: Well-nourished, well-developed pleasant female patient in [facility]. SKIN: Warm and dry. No rash. HEENT: Normocephalic. Atraumatic. Pupils equal and round. Mucous membranes pink and moist. CARDIOVASCULAR: Regular rate and rhythm. No murmur appreciated. RESPIRATORY: No accessory muscle use. Clear to auscultation. Breath sounds equal bilaterally. GASTROINTESTINAL: Abdomen soft, non-tender, nondistended. Normoactive bowel sounds x4. MUSCULOSKELETAL: No obvious deformities. Extremities without clubbing, cyanosis , or edema. RUE in surgical dressing with external fixator in place, distal sensation intact with brisk capillary refill. NEUROLOGICAL: Awake and alert. No obvious cranial nerve deficits. Moving all extremities spontaneously. Normal speech. PSYCHIATRIC: Appropriate mood and affect; insight and judgment normal. Results Procedures completed during hospitalization: 02/28/18 - Open reduction right elbow dislocation, external fixation right elbow , primary repair of right ulnar collateral ligament, primary repair of lateral ulnar collateral ligament by Dr. Barber - Impressions ITS Impressions Humerus X-Ray 02/27/18 12:29 CONCLUSION: Mild degenerative changes, negative for fracture Elbow X-Ray 02/28/18 00:00 CONCLUSION: Intraoperative spot images showing external fixation hardware. Discharge Plan - Discharge Disposition Patient Disposition: 01 Discharge Home - Discharge Condition Condition: Stable - Discharge Order Discharge Orders: Discharge Order (Routine); Ordered 03/01/18 Ordered By: [place] - Discharge Details Anticipated Discharge Date: 03/01/18 Discharge Comment: Ok to discharge. - Physicians Team Primary Care Provider: Suzy Rogers Attending Provider: Oscar Lazaro Other Providers: Anibal Hinds MD ; Stevie Barber MD ; Jumana Denney
== END 2018-03-01 16:45 | disposition home or self-care (01) | DRG 502 ==
LOC: NEPE 12:01 → NEDA 19:09 → N06 20:15
PROVIDERS: ADMIT Internal Medicine; ATTEND Internal Medicine
CPT/HCPCS: 24600; 73060; 73070; 76000; 80048; 85025; 85610; 85730; 90774; 90775; 90784; 93005; 94150; 94770; 96374; 96375; 97162; 97167; 97530; 99145; 99152; 99153; 99285; C1713; C1776; C8952; J0131; J0330; J0690; J1100; J1170; J1580; J2250; J2270; J2405; J2704; J2710; J3010; J3370; J7030; J7120; L3763; L3986